=== PATIENT | female | born 1995 | race African-American/Black ===

== ENCOUNTER 2017-04-04 18:14 | Emergency (ER) | payer MEDICAID ==
[~2017-04-04] VITALS: Ht 175.3 cm; Wt 82.0 kg
[~2017-04-04 18:14] MED LIST: UNKNOWN ABX
[2017-04-04 23:12] LABS: CLARITY URINE CLEAR (CLEAR); COLOR URINE YELLOW (YELLOW); GLUCOSE URINE NEGATIVE (NEGATIVE); KETONES URINE NEGATIVE (NEGATIVE); LEUKOCYTE ESTERASE URINE NEGATIVE (NEGATIVE); NITRITE URINE NEGATIVE (NEGATIVE); OCCULT BLOOD URINE 1+ (NEGATIVE); PH URINE 7.5 (4.5-8.0); PROTEIN URINE NEGATIVE (NEGATIVE); SPECIFIC GRAVITY URINE 1.026 (1.005-1.030)
[2017-04-04 23:31] LABS: BACTERIA URINE TRACE; RBC URINE 0-2 /hpf (0-2); SQUAMOUS EPITHELIAL CELL URINE FEW /lpf (RARE/1+); WBC URINE 0-2 /hpf (0-2)
[2017-04-04 23:50] VITALS: BP 120/64
[2017-04-08 07:24] LABS: CHLAMYDIA TRACHOMATIS NAA Negative (Negative); NEISSERIA GONORRHOEAE NAA Negative (Negative)
== END 2017-04-04 23:55 | disposition home or self-care (01) ==
LOC: ER 20:48
DX: N92.0 Excessive and frequent menstruation with regular cycle (principal); F12.10 Cannabis abuse, uncomplicated; Z90.89 Acquired absence of other organs
CPT/HCPCS: 81001; 87210; 87491; 87591; 99284